=== PATIENT | female | born 1945 | race Caucasian/White ===

== ENCOUNTER 2021-06-24 10:28 | Emergency (ER) | payer OTHER, SELFPAY ==
[2021-06-24 10:39] VITALS: BP 135/82; PULSE 88; RESP 20; TEMP 37; O2SAT 100
[2021-06-24 10:46] VITALS: BP 135/82; PULSE 88; RESP 20; TEMP 37; O2SAT 100
--- NOTE | 2021-06-24 10:52 | ED.LOWEXIN ---
HPI - Extremity Injury (Lower) General Chief Complaint: Extremity Injury, Lower Stated Complaint: right foot toe pain Time Seen by Provider: 06/24/21 10:45 Source: patient and RN notes reviewed Mode of arrival: ambulatory Limitations: no limitations History of Present Illness HPI Narrative: Patient presents today complaining of right foot pain at the base of the first toe x3 days has been worsening since onset. Denies numbness or tingling in the foot or toes. Currently rates his pain 4/10, which increases with weightbearing. She has been taking Tylenol and I open as well as two of her 's allopurinol pills without much relief. Patient has never been diagnosed with gout, but believes this is what she has. Related Data Home Medications Medication Instructions Recorded Confirmed levothyroxine 50 mcg PO DAILY 06/24/21 06/24/21 meclizine 25 mg PO TID PRN 06/24/21 06/24/21 pravastatin 40 mg PO DAILY 06/24/21 06/24/21 triamterene-hydrochlorothiazid 1 cap PO DAILY 06/24/21 06/24/21 Allergies Allergy/AdvReac Type Severity Reaction Status Date / Time No Known Allergies Allergy Verified 06/24/21 10:46 Review of Systems Review of Systems: CONSTITUTIONAL: Denies body aches, fever, chills, or sweats. EYES: Denies visual changes, redness, or discharge. ENT: Denies rhinorrhea, congestion, sore throat, or otalgia. CARDIOVASCULAR: Denies chest pain, palpitations, or edema. RESPIRATORY: Denies cough or dyspnea. GASTROINTESTINAL: Denies abdominal pain, nausea, vomiting, or diarrhea. GENITOURINARY: Denies dysuria or hematuria. SKIN: Denies rash, itching, or wounds. MUSCULOSKELETAL: Denies back pain, or myalgia.+ Right foot pain NEUROLOGIC: Denies headache, numbness, tingling, or weakness. PSYCH: Denies depression or anxiety. [facility] Past Medical History Medical History (Updated 06/24/21 @ 10:57 by Lucy Lucio, XANDER, ) High cholesterol M?ni?re's disease Surgical History Surgical History (Updated 06/24/21 @ 10:54 by Lucy Lucio, XANDER, ) H/O: hysterectomy Comments At time of signature, I have reviewed and agree with nursing past medical, surgical, social and family history unless otherwise noted. Please see nursing chart for further information. There is no relevant family history pertinent to the presenting complaint Exam Narrative: GENERAL: Well-appearing, well-nourished, and in no acute distress. HEAD: Normocephalic, atraumatic. EYES: EOMI. No redness or drainage. Conjunctivae normal. ENT: Mucous membranes pink and moist. NECK: Normal AROM. CHEST: No respiratory distress. EXTREMITIES: Right foot: Redness and mild edema to the first MTP with increased warmth. Distal sensation intact. Capillary refill normal. Pedal pulse normal. SKIN: Warm, dry, no rash. Capillary refill normal. Normal skin turgor. NEURO: No focal deficits. Alert and oriented x3. Gait steady. PSYCH: Normal affect. No signs of depression or anxiety. Course Vital Signs Vital signs: Vital Signs Temperature 98.6 F 06/24/21 10:39 Pulse Rate 88 06/24/21 10:39 Respiratory Rate 20 06/24/21 10:39 Blood Pressure 135/82 06/24/21 10:39 Pulse Oximetry 100 06/24/21 10:39 Temperature 98.6 F 06/24/21 10:46 Pulse Rate 88 06/24/21 10:46 Respiratory Rate 20 06/24/21 10:46 Blood Pressure 135/82 06/24/21 10:46 Pulse Oximetry 100 06/24/21 10:46 Reviewed. Pt has been instructed to follow up with her PCP regarding her elevated blood pressure today. MDM - Extremity Injury (Lower) Differential Diagnosis Differential diagnosis: Likely other (Gout, cellulitis) Critical Care Time Critical Care Time Critical Care Time: No Discharge Plan Discharge Clinical Impression: Gout Qualifiers: Gout site: foot Gout etiology: unspecified cause Chronicity: acute Laterality: right Qualified Code(s): M10.9 - Gout, unspecified Patient Disposition: Home, Self-Care Condition: Stable Instructions: Gout (ED
== END 2021-06-24 11:00 | disposition home or self-care (01) ==
PROVIDERS: Emergency Provider Nurse Practitioner; PCP Family Medicine
DX: M10.9 Gout, unspecified (principal); E78.00 Pure hypercholesterolemia, unspecified; H81.09 Meniere's disease, unspecified ear
CPT/HCPCS: 99213; G0463

== ENCOUNTER 2025-08-01 09:08 | Emergency (ER) | payer OTHER, SELFPAY ==
--- OUTSIDE RECORDS SUMMARY | 2025-08-01 09:10 | XMS_ITS | Clinical Summary ---
Author Organization [facility] Address [address] [place] [address] Phone Care Team Providers Care Field Organizer Name Role Phone Deni Carey MD Primary Care Provider [phone] Allergies No known active allergies Medications Vit D-Ca Beta Hydrox Beta Meth 2.08-500 MCG-MG Capsule Take 50,000 Units by mouth once a week. 3 Active pravastatin (PRAVACHOL) 40 MG Tablet Take 40 mg by mouth daily. Active allopurinol (ZYLOPRIM) 300 MG Tablet Take 150 mg by mouth daily. Active tiZANidine (ZANAFLEX) 2 MG Tablet Take 1 Tablet by mouth 3 times daily. 30 Tablet 5 Active levothyroxine (SYNTHROID) 50 MCG Tablet TAKE 1 TABLET BY MOUTH EVERY DAY 90 Tablet 1 5 Active meclizine (ANTIVERT) 25 MG Tablet TAKE 1 TABLET BY MOUTH THREE TIMES A DAY NEEDED FOR DIZZINESS 30 Tablet 5 Active Active Problems Problem Noted Date Diagnosed Date Other hyperlipidemia 08/21/2024 Other specified hypothyroidism 08/21/2024 Hyperuricemia 08/21/2024 Encounter for immunization 08/21/2024 Vitamin D deficiency 08/21/2024 Dizziness 08/21/2024 Encounters Date Type Department Care Team Description 06/30/2025 Refill [facility] - Primary Care - [address] [place] [address] Deni Carey MD Medication Refill from Last 3 Months Immunizations Immunization Administration Dates Next Due Pneumococcal conjugate PCV20 , polysaccharide [id number] conjugate, adjuvant, PF 08/21/2024 Family History Medical History Relation Name Comments No Known Problems Brother 1 No Known Problems Brother 2 Relation Name Status Comments Brother 1 Alive Brother 2 Alive Father Mother Sister Social History Tobacco Use Types Packs/Day Years Used Date Smoking Tobacco: Never Passive Smoke Exposure: Never Smokeless Tobacco: Never Tobacco Cessation:Counseling Given: Not Answered Alcohol Use Standard Drinks/Week Comments Never 0 (1 standard drink = 0.6 oz pur e alcohol) PHQ-2 Answer Date Recorded Total Score - Questions 1-9 0 08/07 Sexually Active Control Partners Comments Not Currently Comments No Sex and Gender Information Value Date Recorded Sex Assigned at Not on file Legal Sex Female 11:19 PM CDT Gender Identity Not on file Sexual Orientation Not on file Last Filed Vital Signs Vital Sign Reading Time Taken Comments Blood Pressure 120/62 02/19/2025 9:42 AM CDT Pulse 78 02/19/2025 9:42 AM CDT Temperature 36.2 C (97.2 F) 02/19/2025 9:42 AM CDT Respiratory Rate - - Oxygen Saturation 97% 02/19/2025 9:42 AM CDT Inhaled Oxygen Concentration - - Weight 80.3 kg (177 lb) 02/19/2025 9:42 AM CDT Height 161.3 cm (5' 3.5) 02/19/2025 9:42 AM CDT Body Mass Index 30.86 02/19/2025 9:42 AM CDT Plan of Treatment Upcoming Encounters Date Type Department Care Team (Late st Contact Info) Description 08/26/2025 11:00 AM [facility] Office Visit [facility] - Primary Care - [address] [place] [id number] eDni Carey MD [address] [place] [address] Health Maintenance Due Date Last Done Comments DEXA Bone Density 1945 Hepatitis C Virus (HCV) Screening 1945 TdaP Immunization 1945 Respiratory Syncytial Virus (RSV) Immunization (Adult) (1 - 1-dose 75+ series) 2020 Medicare Initial AWV [id number] 08/07/2024 Influenza Immunization (#1) 2025 11/0 01/2024, 05/21/2023, 06/11/2022, Additional history exists SARS-COV-2 Immunization (2024- season) 2025 06/12/2024, 05/17/2023, 06/11/2022, Additional history exists Zoster Immunization Completed 10/26/2021, Pneumococcal Immunization (50+ years) Completed 08/21/2024 Hepatitis B Immunization Aged Out No longer eligible based on patient's age to complete this topic Human Papillomavirus (HPV) Immunization (No Doses Required) Completed Meningococcal Immunization (ACWY) Aged Out No longer eligible based on patient's age to complete this topic Rotavirus Immunization Aged Out No lo nger eligible based on patient's age to complete this topic Insurance MEDICARE C [employer] Care Teams Field Organizer Relationship Specialty Start Date End Date Deni Carey MD PCP - General Internal Medicine 08/21/24
--- OUTSIDE RECORDS SUMMARY | 2025-08-01 09:10 | XMS_ITS | Clinical Summary ---
Author Organization [address] Address [address] [place] [address] [place] [address] Care Team Providers [employer] Name Role Phone Rafael John MD Primary Care Provider [phone] Rafael John MD Unavailable [phone] Allergies No known active allergies Medications oxymetazoline (AFRIN) 0.05 % nasal spray Administer 2 sprays into each nostril as needed for congestion Active cyclobenzaprine (FLEXERIL) 10 mg tabletIndication s:Strain of lumbar region, initial encounter Take 1 tablet (10 mg total) by mouth 3 (three) times a day as needed for muscle spasms 30 tablet 1 3 Active scopolamine 1 mg over 3 days patch [address] 1 patch on the skin every third day as needed (nausea) 4 patch 2 4 Active levothyroxine (SYNTHROID) 50 mcg tablet TAKE 1 TABLET BY MOUTH EVERY DAY 100 tablet 1 5 Active ergocalciferol (VITAMIN D) 50,000 unit capsuleIndicatio ns:Vitamin D deficiency TAKE 1 CAPSULE BY MOUTH ONE TIME PER WEEK 12 capsule 3 5 Active pravastatin (PRAVACHOL) 40 mg tablet TAKE 1 TABLET BY MOUTH EVERY DAY 90 tablet 3 5 Active allopurinoL (ZYLOPRIM) 100 mg tabletIndication s:Acute gout involving toe of left foot, unspecified cause TAKE 1/2 TABLET BY MOUTH DAILY 45 tablet 5 Active meclizine (ANTIVERT) 25 mg tablet TAKE 1 TABLET BY MOUTH THREE TIMES A DAY NEEDED FOR DIZZINESS 30 tablet 2 5 Active Active Problems Problem Noted Date Diagnosed Date Mixed hyperlipidemia 07/23/2024 Assessment & Plan (07/23/2024 1:55 PM BILLING REP): Stalbe on pravastatin and iwll montior response. Continue on current reimgen. Skin lesion of face 07/23/2024 Assessment & Plan (07/23/2024 1:55 PM BILLING REP): Lesions suspicuious for AK. SOmewhat limited by cosmetics. WIll follow response. Hypothyroidism 07/23/2024 Assessment & Plan (07/23/2024 1:56 PM BILLING REP): Clinically euthyroid. WIll follow response. Check TFTs. Medicare annual wellness visit, subsequent 07/23 Assessment & Plan (07/23/2024 1:56 PM BILLING REP): Focus of exam is preventative in nature. Reievwed age and comorbid appropraite screening recommendations. WIll follow response. Reivewed fall prevnetion and will monitor response. Encounter for annual wellness exam in Medicare p atient 07/11/2023 Assessment & Plan (07/11/2023 11:10 AM BILLING REP): Preventive exam; reviewed recommended preventive screenings and vaccinations. Encourage annual flu vaccine. Wear sunscreen/protective clothing when outdoors. Strain of lumbar region 07/11/2023 Assessment & Plan (07/11/2023 11:12 AM BILLING REP): No injury. Pain present for the past 2-3 weeks, patient states this feels similar to previous muscle strains and has improved with use of muscle relaxer. Prescribed flexeril and prednisone taper today. Patient aware of need to follow-up if experiencing any new or worsening symptoms or if symptoms do not improve. Will plan for x-rays and additional referral as needed. Vitamin D deficiency 07/11/2023 Chronic pain of left knee 07/11/2023 Assessment & Plan (07/11/2023 11:16 AM BILLING REP): No injury. Discussed continued use of wrap, ice and elevation. Offered imaging and possible referral to Orthopedic surgery. Patient declines workup at this time prefers to continue to monitor for now. Working towards weight loss. Pneumonia of right lower lobe due to infectious organism 06/09/2022 Assessment & Plan (06/09/2022 11:37 PM CDT): Septic workup in progress. Started on Rocephin and azithromycin. Will obtain urine respiratory antigens. Blood cultures, sputum cultures. Albuterol p.r.n. Repeat CBC in a.m.. Hyponatremia 06/09/2022 Assessment & Plan (06/09/2022 11:36 PM CDT): Mild hyponatremia. Patient is on triamterene and hydrochlorothiazide. Will hold the medications. Started IV fluids saline. Repeat BMP in a.m.. Strict I&Os NOBLE (acute kidney injury) 06/09/2022 Assessment & Plan (06/09/2022 11:35 PM CDT): Holding allopurinol, triamterene hydrochlorothiazide Started on IV fluids with normal saline. Will repeat BMP in a.m.. Monitor I&Os. Transaminitis 06/09/2022 Assessment & Plan (06/09/2022 11:38 PM CDT): Will hold Pravachol. Unclear etiology, likely SIRS versus sepsis associated with community-acquired pneumonia. Gout, unspecified 11/12/2021 Assessment & Plan (11/12/2021 10:31 AM CDT): Medrol prescribed. Will start low-dose allopurinol. Patient to get CMP and uric acid level drawn today. Reviewed with her diet considerations to improve gout /low purine diet. Given handout. BMI 29.0-29.9,adult 11/12/2021 Assessment & Plan (11/12/2021 10:29 AM CDT): Discussed healthy diet and importance of regular physical activity. COVID-19 virus infection 08/29/2020 Refused pneumococcal vaccination 08/31/2018 Colonoscopy refused 08/31/2018 Obesity (BMI 30-39.9) 08/31/2018 Mammogram declined 08/31/2018 Vertigo 12/22/2014 Overview (11/10/2016): Vertigo Acquired hypothyroidism 12/22/2014 Overview (11/10/2016): Hypothyroidism Assessment & Plan (07/11/2023 11:08 AM BILLING REP): Levothyroxine 50 mcg daily. Will check TSH/T4 and make changes as needed. Lab Results Component Value Date TSH 3.00 07/06/2023 TSH 1.87 07/07/2022 TSH 3.12 07/19/2021 Assessment & Plan (06/09/2022 11:34 PM CDT): Continue Synthroid Dyslipidemia 12/22/2014 Overview (11/10/2016): Dyslipidemia Assessment & Plan (07/11/2023 11:13 AM BILLING REP): Reviewed labs today with patient. Continue pravastatin 40 mg daily for now will plan to increase statin medication if no improvement with diet and lifestyle changes. Encounters Date Type Department Care Team Description 07/15/2025 8:55 AM BILLING REP Lab [address] [address] from Last 3 Months Immunizations Immunization Administration Dates Next Due COVID-19 MRNA (MODERNA) .5 M L (50 MCG) VACCINE (12 YEARS AND UP) 06/12/2024 Influenza Virus Vaccine Trivalent Mdv 06/12/2024 Influenza, Quadrivalent, Hig h Dose, Preservative Free, Intrr 06/11/2022,04/01/2021,05/26/2020 Influenza, Quadrivalent, Spl it, Preservative Free, Intramuscular 04/29/2019,08/31/2018,06/01/2017 Influenza, Trivalent, High D ose, Split, Preservative Free, Intramuscular 05/26/2020 Influenza, Unspecified 05/21/2023,03/07/2022,08/2020 Pfizer SARS-CoV-2 Monovalent Vaccination (12+ Yrs) PURPLE 03/23/2021,01/05/2021 Pfizer Sars-Cov-2 Bivalent V accination (12+ YRS) 06/11/2022 Pneumococcal Conjugate PCV 13 08/31/2018(Deferre d: Patient Refused) Pneumococcal Polysaccharide PPV23 08/31/2018(Def erred: Patient Refused) ZOSTER Recombinant 10/26/2021,04/01/2021 Surgical History Surgery Date Site/Laterality Comments TOTAL ABDOMINAL HYSTERECTOMY Hysterectomy, total OTHER SURGICAL HISTORY L ankle repair HYSTERECTOMY hysterectomy Medical History Medical History Date Comments Hx Other Medical vertigo; Commen ts: [facility] 05/20/2014 - Hx Other Medical tinnitis; Comme nts: [facility] 05/20/2014 - Pneumonia 06/2022 Family History Medical History Relation Name Comments Other Brother x3 Alive and well; Cancer Father Cancer, unknown ; Colon cancer Father Cancer, colon; Cause of : Cancer, colon Diabetes Father Diabetes mellit us; Heart disease Father Cardiovascular disease; Heart failure Father Congestive hea rt failure; Hypertension Father Hypertension; Other Father Afib; Hypertension Mother Hypertension; Stroke Mother Stroke; Thyroid disease Mother Thyroid diso rder; /Thyroid disorder; Other Sister 2 Alive and well; Relation Name Status Comments Brother x3 Alive Father Mother (Age 68) Sister 1 Alive Sister 2 Social History Tobacco Use Types Packs/Day Years Used Date Smoking Tobacco: Never Smokeless Tobacco: Never Tobacco Cessation:Counseling Given: Not Answered Alcohol Use Standard Drinks/Week Comments No 0 (1 standard drink = 0.6 oz pur e alcohol) Social Connection and Isolation Panel Answer Date Recorded In a typical week, how many times do you talk on the phone with family, friends, or neighbors? More than three times a week 07/07/2022 How often do you get togethe r with friends or relatives? More than three times a week 07/07/2022 How often do you attend chur ch or caodaism services? More than 4 times per year 07/07/2022 Do you belong to any clubs o r organizations such as roman catholic groups, unions, fraternal or athletic groups, or school groups? Yes 07/07/2022 How often do you attend meet ings of the clubs or organizations you belong to? More than 4 times per year 07/07/2022 Are you , , di vorced, , never , or living with a partner? 07/07/2022 AUDIT-C Answer Date Recorded Q1: How often do you have a drink containing alc ohol? Never 07/12/2022 Average Number of Drinks Not on file 022 Frequency of Binge Drinking Not on file 01/2022 Overall Financial Resource Strain (CARDIA) Answe r Date Recorded How hard is it for you to pa y for the very basics like food, housing, medical care, and heating? Not hard at all 07/07/2022 PHQ-2 Answer Date Recorded PHQ-2 Total Score (If total score is 3 or more points, staff should administer the PHQ-9) 0 07/23/2024 PRAPARE - Transportation Answer Date Re corded In the past 12 months, has l ack of transportation kept you from medical appointments or from getting medications? No 08/2021 In the past 12 months, has l ack of transportation kept you from meetings, work, or from getting things needed for daily living? No 07/07/2022 Housing Stability Vital Sign Answer Antony e Recorded In the last 12 months, was t here a time when you were not able to pay the mortgage or rent on time? No 07/07/2022 In the last 12 months, how many places have you lived? 1 07/07/2022 In the last 12 months, was t here a time when you did not have a steady place to sleep or slept in a chcf (including now)? No 07/07/2022 Comments No Sex and Gender Information Value Date Recorded Sex Assigned at Not on file Legal Sex Female 12:42 PM BILLING REP Gender Identity Not on file Sexual Orientation Not on file Last Filed Vital Signs Vital Sign Reading Time Taken Comments Blood Pressure 124/72 07/23/2024 1:33 PM BILLING REP Pulse 78 07/23/2024 1:33 PM BILLING REP Temperature 36.8 C (98.2 F) 07/23/2024 1:33 PM BILLING REP Respiratory Rate 16 07/24/2023 9:32 AM BILLING REP Oxygen Saturation 98% 07/23/2024 1:33 PM BILLING REP Inhaled Oxygen Concentration - - Weight 75.6 kg (166 lb 11.2 oz) 07/23/2024 1:33 PM BILLING REP Height 162.6 cm (5' 4) 07/23/2024 1:33 PM BILLING REP Body Mass Index 28.61 07/23/2024 1:33 PM BILLING REP Plan of Treatment Health Maintenance Due Date Last Done Comments DTaP/Tdap/Td Vaccine (1 - Tdap) 1956 Hepatitis B Screening 1963 Pneumococcal vaccine 65+ (1 of 1 - PCV) 1995 Covid-19 Vaccine (8 2024-2 6 season) 2025 06/12/2024, 05/17/2023, 06/11/2022, Additional history exists Influenza Vaccine (#1) 2025 , 05/21/2023, 06/11/2022, Additional history exists Depression Screening 07/23/2025 07/23/2024, 07/11/2023, 07/12/2022, Additional history exists Fall Risk Assessment 07/23/2025 07/23/2024, 07/11/2023, 07/12/2022, Additional history exists Well Visit 65+ 07/23/2025 07/23/2024, 1212/2022, 07/12/2022, Additional history exists Zoster Vaccine Completed 10/26/2021, 04/01/2021 Osteoporosis Screening-Bone Density Scan Discontinued Procedures Procedure Name Priority Date/Time Associated Diagnosis Comments EGFR Routine 07/15/2025 9:00 AM BILLING REP URIC ACID Routine 07/15/2025 9:00 AM BILLING REP T4, FREE Routine 07/15/2025 9:00 AM BILLING REP TSH Routine 07/15/2025 9:00 AM BILLING REP LIPID PANEL Routine 07/15/2025 9:00 AM BILLING REP COMPREHENSIVE METABOLIC PANEL Routine 07/15/2025 9:00 AM BILLING REP from Last 3 Months Results * (ABNORMAL) eGFR (07/15/2025 9:00 AM BILLING REP) [facility] eGFR 53(L) >=60 mL/min/1. 73 m2 Comment: Interpretive Data Reference Interval Normal >/= 90 mL/min/1.73m2 Mildly decreased* 60 - 89 mL/min/1.73m2 Mildly to moderately decreased 45 - 59 mL/min/1.73m2 Moderately to severely decreased 30 - 44 mL/min/1.73m2 Severely decreased 15 - 29 mL/min/1.73m2 Kidney Failure < 15 mL/min/1.73m2 *Relative to young adult level Estimated glomerular filtration rate is determined by the 2020 CKD-EPI equation recommended by the National Kidney Foundation (A Unifying Approach to GFR Estimation: Recommendations of the NKF-ASK Task Force on Reassessing the Inclusion of Race in Diagnosing Kidney Disease, JASN 2020). The CKD-EPI equation should not be used for patients with unstable renal function and has not been validated in children and those over 70. Current interpretive data was last reviewed 2021. Blood 07/15/2025 9:00 AM BILLING REP 07/15/2025 9:36 AM BILLING REP Deni Carey MD LAB BLOOD ORDERABLES Final Result [facility] [place]) 1 [facility] [place] [address] * Uric acid (07/15/2025 9:00 AM BILLING REP) Uric acid 4.5 2.5 - 7.0 mg/dL Blood 07/15/2025 9:00 AM BILLING REP 07/15/2025 9:36 AM BILLING REP Deni Carey MD LAB BLOOD ORDERABLES Final Result [facility] ([place]) 1 [facility] [place] [address] * (ABNORMAL) TSH (07/15/2025 9:00 AM BILLING REP) Thyroid Stimulating Hormone 4.47(H) 0.30 - 4.20 mcIUnit/mL Blood 07/15/2025 9:00 AM BILLING REP 07/15/2025 9:36 AM BILLING REP us Deni Carey MD LAB BLOOD ORDERABLES Final Result [facility] ([place]) 1 [facility] [place] [address] * T4, free (07/15/2025 9:00 AM BILLING REP) Free T4 1.21 0.90 - 1.70 ng/dL Blood 07/15/2025 9:00 AM BILLING REP 07/15/2025 9:36 AM BILLING REP us Deni Carey MD LAB BLOOD ORDERABLES Final Result Performing Organization Address [facility] Co de Phone Number [facility] ([place]) 1 [facility] [place] [address] * (ABNORMAL) Lipid panel (07/15/2025 9:00 AM BILLING REP) Cholesterol 207(H) 30 - 199 mg/dL Comment: Interpretive Data Ages < or = 19 years Acceptable: <170 mg/dL Borderline high: 170-199 mg/dL High: >or= 200 mg/dL Ages > or = 20 years Desirable: <200 mg/dL Borderline high: 200-239 mg/dL High: >or= 240 mg/dL Literature References: 1. Expert Panel on Integrated Guidelines for Cardiovascular Health and Risk Reduction in Children and Adolescents. Pediatrics 2011;128:S213 2. NCEP Expert Panel. Circulation 2004;110:227 Current Interpretive Data was last revised on 2018. Triglycerides 105 <=149 mg/dL [facility] ([place]) Comment: Interpretive Data Ages < or = 9 years Acceptable: <75 mg/dL Borderline high: 75-99 mg/dL High: >or= 100 mg/dL Ages 10 to 20 years Acceptable: <90 mg/dL Borderline high: 90-129 mg/dL High: >or= 130 mg/dL Ages > or = 20 years Desirable: <150 mg/dL Borderline high: 150-199 mg/dL High: 200-499 mg/dL Very high: >or= 499 mg/dL Literature References: 1. Expert Panel on Integrated Guidelines for Cardiovascular Health and Risk Reduction in Children and Adolescents. Pediatrics 2011;128:S213 2. NCEP Expert Panel. Circulation 2004;110:227 Current Interpretive Data was last revised on 2018. HDL 57 >=40 mg/dL [facility] ([place]) Comment: Interpretive Data Ages < or = 19 years Acceptable: >45 mg/dL Borderline low: 40-45 mg/dL Low: <40 mg/dL Ages > or = 20 years Desirable: >or= 60 mg/dL Low: <40 mg/dL Literature References: 1. Expert Panel on Integrated Guidelines for Cardiovascular Health and Risk Reduction in Children and Adolescents. Pediatrics 2011;128:S213 2. NCEP Expert Panel. Circulation 2004;110:227 Current Interpretive Data was last revised on 2018. LDL, calculated 131(H) <=129 mg/dL [facility] ([place]) Comment: Interpretive Data Ages < or = 19 years Acceptable: <110 mg/dL Borderline high: 110-129 mg/dL High: >or= 130 mg/dL Ages > or = 20 years Optimal: <100 mg/dL Near optimal: 100-129 mg/dL Borderline high: 130-159 mg/dL High: >160 mg/dL Calculated using the Shashank LDL-C estimating equation. This equation was implemented on 2024. Prior to this date LDL-C was estimated using the Friedewald equation. Literature References: 1. Expert Panel on Integrated Guidelines for Cardiovascular Health and Risk Reduction in Children and Adolescents. Pediatrics 2011;128:S213 2. NCEP Expert Panel. Circulation 2004;110:227 3. Shashank You al. ALMA Cardiol. 2020 December 05;5(5):540-548. doi: 10.1001/jamacardio.2020.0013 Current Interpretive Data was last revised on 2024. Non-HDL Cholesterol 150 mg/dL [facility] ([place]) Comment: Interpretive Data Ages < or = 19 years Acceptable: <120 mg/dL Borderline high: 120-144 mg/dL High: >145 mg/dL Ages > or = 20 years When triglycerides are >200 mg/dL, Non-HDL cholesterol is a secondary target of therapy with treatment goals that are 30 mg/dL greater than the LDL cholesterol target. Literature References: 1. Expert Panel on Integrated Guidelines for Cardiovascular Health and Risk Reduction in Children and Adolescents. Pediatrics 2011;128:S213 2. NCEP Expert Panel. Circulation 2004;110:227 Current Interpretive Data was last revised on 2018. Chol/HDL ratio 4 [facility] ([place]) Blood 07/15/2025 9:00 AM BILLING REP 07/15/2025 9:36 AM BILLING REP us Deni Carey MD LAB BLOOD ORDERABLES Final Result [facility] ([place]) 1 [facility] Department [place] [address] * Comprehensive metabolic panel (07/15/2025 9:00 AM BILLING REP) Sodium 140 135 - 145 mmol/L Potassium, pl 3.8 3.3 - 4.9 mmol/L [facility] ([place]) Chloride 107 97 - 110 mmol/L [facility] ([place]) CO2 23 22 - 32 mmol/L [facility] ([place]) Anion gap 10 2 - 15 mmol/L [facility] ([place]) BUN 20 6 - 25 mg/dL [facility] ([place]) Creatinine 1.07 0.60 - 1.10 mg/dL [facility] ([place]) Glucose 94 70 - 199 mg/dL [facility] ([place]) Comment: Interpretive Data Fasting glucose >/= 126 mg/dl is diagnostic for diabetes. Fasting is defined as no caloric intake for at least 8 hours. Fasting glucose between 100 mg/dl to 125 mg/dl is diagnostic of prediabetes. In a patient with classic symptoms of hyperglycemia or hyperglycemic crisis, a random glucose >/= 200 mg/dl is diagnostic for diabetes. In the absence of unequivocal hyperglycemia, results should be confirmed by repeat testing. The classification and Diagnosis of Diabetes Diabetes Care 2021; 46: S19-S40. Current interpretive data was last revised 2022. Calcium 9.5 8.5 - 10.3 mg/dL [facility] ([place]) Bilirubin, total 0.7 0.1 - 1.2 mg/dL [facility] ([place]) Protein, pl 7.0 6.5 - 8.5 g/dL [facility] ([place]) Albumin 4.4 3.5 - 5.0 g/dL [facility] ([place]) Alk phos 61 40 - 130 Units/L [facility] ([place]) ALT 16 7 - 45 Units/L [facility] ([place]) AST 24 10 - 45 Units/L [facility] ([place]) Blood 07/15/2025 9:00 AM BILLING REP 07/15/2025 9:36 AM BILLING REP Deni Carey MD LAB BLOOD ORDERABLES Final Result [facility] ([place]) 1 [facility] Department of Laboratories [place], [place] [id number] from Last [address] [facility] Advance Directives For more information, please contact: [phone] * Full Code (Latest Code Status on File) Date Activated Date Inactivated Comments 06/09/2022 4:36 PM 06/11/2022 9:27 PM Care Teams [employer] Relationship Specialty Start Date End Date Rafael John MD [address] [place] [address] PCP - General 08/31/20 Rafael John MD [address] [place] [address] 08/31/20
[2025-08-01 09:15] VITALS: BP 180/82; PULSE 75; RESP 20; TEMP 36.6; O2SAT 100
--- NOTE | 2025-08-01 09:38 | ED.FEMALEGU ---
HPI - Female Genitourinary General Chief complaint: Urogenital-Female Stated complaint: Urinary Problem Time Seen by Provider: 08/01/25 09:30 Source: patient Mode of arrival: ambulatory Limitations: no limitations History of Present Illness HPI Narrative: Dunia is an 80-year-old female patient presenting to the clinic today with complaints of possible UTI x4 days. She reports she is having burning, frequency, and urgency. Denies any fevers, chills, body aches. No nausea or vomiting. Denies any back pain or belly pain. Related Data Home Medications ?Medication ?Instructions ?Recorded ?Confirmed ?Last Taken ?Type levothyroxine 50 mcg tablet 50 mcg PO DAILY 06/24/21 06/24/21 Unknown History meclizine 25 mg tablet 25 mg PO TID PRN Dizziness 06/24/21 06/24/21 Unknown History pravastatin 40 mg tablet 40 mg PO DAILY 06/24/21 06/24/21 Unknown History triamterene 37.5 1 cap PO DAILY 06/24/21 06/24/21 Unknown History mg-hydrochlorothiazide 25 mg capsule allopurinol 100 mg tablet mg 08/01/25 Unknown History ergocalciferol (vitamin D2) 1,250 08/01/25 Unknown History mcg (50,000 unit) capsule Allergies Allergy/AdvReac Type Severity Reaction Status Date / Time No Known Allergies Allergy Verified 08/01/25 09:26 [facility] Past Medical History Medical History (Updated 08/01/25 @ 09:52 by Raoul Chowdhury APRN) High cholesterol M?ni?re's disease Surgical History Surgical History (Updated 06/24/21 @ 10:54 by Lucy Lucio APRN, BODYWORK THERAPIST) H/O: hysterectomy Comments At the time of my signature, I reviewed and agree with the nursing past medical, surgical, social, and family history. There is no relevant family history pertinent to the patient complaint. Exam Narrative: General: Well-developed, well nourished, in no apparent distress. Head: Normocephalic, atraumatic. Cardio: Regular rate and rhythm, s1 and s2 normal, no murmur appreciated. Resp: Clear to auscultation bilaterally, no rhonchi, rales, wheezing or rubs. Abdomen: Soft, pliable, bowel sounds present in all quadrants, suprapubic tender to palpation, no organomegly, no CVAT tenderness. Course Course Level of Care: Express Care Visit Vital Signs Vital signs: Vital Signs Temperature 36.6 C 08/01/25 09:15 Pulse Rate 75 08/01/25 09:15 Respiratory Rate 20 08/01/25 09:15 Blood Pressure 180/82 H 08/01/25 09:15 Pulse Oximetry 100 08/01/25 09:15 Oxygen Delivery Room Air 08/01/25 09:15 Temperature 36.6 C 08/01/25 09:15 Pulse Rate 75 08/01/25 09:15 Respiratory Rate 20 08/01/25 09:15 Blood Pressure 180/82 H 08/01/25 09:15 Pulse Oximetry 100 08/01/25 09:15 Oxygen Delivery Room Air 08/01/25 09:15 MDM MDM Narrative Medical decision making narrative: At the time of visit patient is resting comfortably on the exam table. Patient appears to be nontoxic. Complaints of possible UTI x4 days. She reports she is having burning, frequency, and urgency. Denies any fevers, chills, body aches. No nausea or vomiting. Denies any back pain or belly pain. On exam patient has soft, pliable, nondistended abdomen, no CVAT tenderness, mild suprapubic tenderness, no organomegaly, bowel sounds present all 4 quadrants. Urine dip ordered. Urine culture ordered. Labs: Urinalysis positive for leukocytes, blood, and protein. We will send urine for culture. Plan: I suspect patient has acute UTI. Prescription for cephalexin was sent to the pharmacy. We will send urine for culture. Supportive measures were discussed with the patient and they voiced understanding discharge instructions and agrees to treatment plan. Return precautions reviewed Differential Diagnosis Differential Diagnosis: Differential diagnostic considerations for female urogenital issues include urinary tract infection, bacterial vaginosis, cervicitis, ovarian cyst, vaginitis, STI exposure, ovarian torsion, ectopic , cyst of Bartholin?s gland, cystitis, dysmenorrhea. Discharge Plan Discharge Clinical Impression: Urinary tract infection Qualifiers: Urinary tract infection type: acute cystitis Hematuria presence: with hematuria Qualified Code(s): N30.01 - Acute cystitis with hematuria Patient Disposition: Home Condition: Stable Instructions: Antibiotic Form, Urinary Tract Infection in Older Adults (ED) Additional Instructions: Urine dip positive for leukocytes, protein, and blood. We will send urine for culture. Increase fluids and stay well hydrated Wipe front to back. May use wet wipes. Avoid tub baths If sexually active- pee before and after intercourse. Wear cotton panties Avoid tight clothing up against the genitals Follow up with your PCP in 1 week if symptoms persist. Patient Language: Amharic Prescriptions: New cephalexin 500 mg capsule 500 mg PO Q12H 7 Days Qty: 14 0RF No Action pravastatin 40 mg tablet 40 mg PO DAILY triamterene-hydrochlorothiazid 37.5-25 mg capsule 1 cap PO DAILY meclizine 25 mg tablet 25 mg PO TID PRN (Reason: Dizziness) levothyroxine 50 mcg tablet 50 mcg PO DAILY allopurinol 100 mg tablet ergocalciferol (vitamin D2) 1,250 mcg (50,000 unit) capsule Follow-up/Referrals: Aurelio,Deni Baez MD [Primary Care Provider, Unknown] Time of Disposition: 09:51 Quality NIHSS Nursing Documentation ED NIHSS nursing documentation: reviewed/agree
[2025-08-01 09:42] LABS: EDUAAPPEAR Cloudy; EDUABILI Negative (Negative); EDUABLOOD 3+ (Negative); EDUACOLOR1 Tea Colored; EDUAGLUCOSE Negative (Negative); EDUAKETONE Negative (Negative); EDUALEUKO 2+ (Negative); EDUANITRATE Negative (Negative); EDUAPH 5.5; EDUAPROTEIN 3+ (Negative); EDUASPGRAVITY 1.030; EDUAUROBILI 0.2
== END 2025-08-01 09:59 | disposition home or self-care (01) ==
PROVIDERS: Emergency Provider Nurse Practitioner Family; PCP Internal Medicine
DX: N30.01 Acute cystitis with hematuria (principal)
CPT/HCPCS: 81003; 87077; 87086; 87186; 99213; G0463